=== PATIENT | female | born 1950 | race Caucasian/White ===

== ENCOUNTER 2019-08-18 08:03 | Day surgery (SDC) | payer MEDICARE ==
[2019-08-18] VITALS (12 sets, daily range): BP systolic 104–155; BP diastolic 51–80
[~2019-08-18] VITALS: Ht 165.1 cm; Wt 64.0 kg
[2019-08-18] MEDS ORDERED: LORazepam 0.5 MG tablet PO PRN (08:25)
[2019-08-18] MEDS ORDERED: diphenhydrAMINE 25mg capsule PO PRN (08:25)
[2019-08-18] MEDS ORDERED: normal saline 1,000 ML IV SCH (08:25)
[2019-08-18] MEDS ORDERED: LIDOcaine/PRILOcaine 5gm cream TP ONE (08:25)
[2019-08-18 09:05] LABS: ALBUMIN 3.8 G/DL (3.4-5.0); ANION GAP 9 (8-16); BASOPHILS % (AUTO) 0.4 % (0-1); CALCIUM 9.5 MG/DL (8.5-10.1); CHLORIDE 102 MMOL/L (99-107); CREATININE 1.02 MG/DL (0.40-0.90); EOSINOPHILS # (AUTO) 0.3 X10'3 (0-0.9); HEMATOCRIT 42.8 % (35.0-45.0); HEMOGLOBIN 14.2 g/dl (12.0-16.0); LYMPHOCYTES # (AUTO) 1.9 X10'3 (1.1-4.8); LYMPHOCYTES % (AUTO) 16.4 % (21-51); MEAN CORPUSCULAR HEMOGLOBIN 29.7 PG (27.0-31.0); MEAN CORPUSCULAR HGB CONC 33.2 g/dL (33.0-36.5); MEAN CORPUSCULAR VOLUME 89.5 FL (78-98); MEAN PLATELET VOLUME 8.8 FL (7.4-10.4); MONOCYTES # (AUTO) 0.6 X10'3 (0-0.9); MONOCYTES % (AUTO) 5.3 % (2-12); NEUTROPHILS # (AUTO) 8.5 X10'3 (1.8-7.7); NEUTROPHILS % (AUTO) 74.9 % (42-75); PLATELET COUNT 285 X10'3 (140-440); POTASSIUM 4.5 MMOL/L (3.5-5.1); RED BLOOD COUNT 4.78 X10'6 (4.20-5.60); RED CELL DISTRIBUTION WIDTH 14.7 % (11.5-14.5); SODIUM 136 MMOL/L (135-145); TOTAL CARBON DIOXIDE 24.7 MMOL/L (24-32); WHITE BLOOD COUNT 11.4 X10'3 (4.5-11.0); eGFR 54 ML/MIN
[2019-08-18 09:10] LABS: BLOOD UREA NITROGEN 18 MG/DL (7-18); BUN/CREATININE RATIO 17.6 (6.6-38.0); GLUCOSE 91 MG/DL (70-104)
[2019-08-18] MEDS ORDERED: midazolam 2 mg/2 ml injection ONE (10:22)
[2019-08-18] MEDS ORDERED: nitroGLYCERIN-Tridil 50MG/D5W 250 ML IV ONE (10:22)
[2019-08-18] MEDS ORDERED: verapamil 2.5 mg/ml inj IV ONE (10:22)
[2019-08-18] MEDS ORDERED: LIDOcaine 1% (10mg/ml)w/preservative injection 20ml MDV ONE (10:23)
[2019-08-18] MEDS ORDERED: fentaNYL/PF 50MCG/1 ML 2ML syringe ONE (10:23)
[2019-08-18] MEDS ORDERED: heparin 1,000unit/ml 10ml vial 10 ML ONE (10:23)
[2019-08-18] MEDS ORDERED: iohexol 350MG/ML 100ml bottle IV ONE (10:23)
[2019-08-18] MEDS ORDERED: ROSU20TA2 PO (10:34)
[2019-08-18] MEDS ORDERED: CARV3.122 PO (10:34)
[2019-08-18] MEDS ORDERED: HYDR12.55 PO (10:34)
[2019-08-18] MEDS ORDERED: MULT-1085 PO (10:34)
[2019-08-18] MEDS ORDERED: LISI-604 PO (10:34)
[2019-08-18] MEDS ORDERED: CALC625T31 PO (10:34)
[2019-08-18] MEDS ORDERED: ASPI-1265 PO (10:34)
[2019-08-18] MEDS ORDERED: OXAZEpam 15mg capsule PO PRN (11:50)
[2019-08-18] MEDS ORDERED: HYDROcodone/acetaminophen 10/325mg tab PO PRN (11:50)
[2019-08-18] MEDS ORDERED: ondansetron/PF 4mg/2ml inj IV PRN (11:50)
[2019-08-18] MEDS ORDERED: HYDROcodone/acetaminophen 5mg/325mg tablet PO PRN (11:50)
[2019-08-18] MEDS ORDERED: nitroGLYCERIN 0.4mg SUBLingual tab SL PRN (11:50)
[2019-08-18] MEDS ORDERED: proCHLORperazine 10 MG/2 ml inj IV PRN (11:50)
== END 2019-08-18 14:55 | disposition home or self-care (01) ==
LOC: MED 3N 08:03 → SSTAY O 08:03
PROVIDERS: ATTEND Internal Medicine Interventional Cardiology
DX: R94.39 Abnormal result of other cardiovascular function study (principal); I25.10 Atherosclerotic heart disease of native coronary artery without angina pectoris; I25.82 Chronic total occlusion of coronary artery; E78.5 Hyperlipidemia, unspecified; F17.210 Nicotine dependence, cigarettes, uncomplicated; I25.2 Old myocardial infarction; I11.0 Hypertensive heart disease with heart failure; I50.9 Heart failure, unspecified; Z79.899 Other long term (current) drug therapy; Z79.82 Long term (current) use of aspirin; Z88.8 Allergy status to other drugs, medicaments and biological substances; Z88.5 Allergy status to narcotic agent
CPT/HCPCS: 36415; 80048; 85025; 85610; 93005; 93458; 99152; 99153; C1769; C1894; J1644; J2001; J2250; J3010; J7030; Q0163; Q9967; A5120; J3490

== ENCOUNTER 2019-10-12 05:10 | Inpatient (IN) | payer MEDICARE ==
[2019-10-02 14:24] LABS: BASOPHILS # (AUTO) 0.1 X10'3 (0-0.2); BASOPHILS % (AUTO) 0.7 % (0-1); EOSINOPHILS # (AUTO) 0.3 X10'3 (0-0.9); EOSINOPHILS % (AUTO) 3.8 % (0-6); LYMPHOCYTES # (AUTO) 2.1 X10'3 (1.1-4.8); LYMPHOCYTES % (AUTO) 25.2 % (21-51); MEAN CORPUSCULAR HEMOGLOBIN 30.1 PG (27.0-31.0); MEAN CORPUSCULAR HGB CONC 33.1 g/dL (33.0-36.5); MEAN PLATELET VOLUME 8.7 FL (7.4-10.4); MONOCYTES # (AUTO) 0.4 X10'3 (0-0.9); MONOCYTES % (AUTO) 4.9 % (2-12); NEUTROPHILS # (AUTO) 5.4 X10'3 (1.8-7.7); NEUTROPHILS % (AUTO) 65.4 % (42-75); PRE OP HEMATOCRIT 42.2 % (35.0-45.0); PRE OP PLATELET COUNT 233 X10'3 (140-440); RED BLOOD COUNT 4.64 X10'6 (4.20-5.60); RED CELL DISTRIBUTION WIDTH 14.2 % (11.5-14.5)
[2019-10-02 14:24] LABS: CLARITY,URINE SLIGHTLY CLOUDY (Clear); COLOR,URINE YELLOW (Yellow); GLUCOSE, URINE NEGATIVE (Neg); KETONES,URINE NEGATIVE (Neg); LEUKOCYTE ESTERASE ,URINE NEGATIVE (Neg); NITRITES, URINE NEGATIVE (Neg); OCCULT BLOOD,URINE SMALL (Neg); PH,URINE 6.5 (4.8-8.0); PROTEIN,URINE NEGATIVE (Neg)
[2019-10-02 14:25] LABS: UA COLLECTION TYPE CLN CATCH MIDSTREAM
[2019-10-02 14:31] LABS: HEMOGLOBIN A1C 5.3 % (4.5-6.2)
[2019-10-02 14:32] LABS: BACTERIA,URINE 1+ /HPF (Neg); HYALINE CASTS 0-3 /LPF (NEGATIVE); MUCUS STRANDS MANY /LPF (Neg); SQUAMOUS EPITHELIAL CELL,UR MODERATE /LPF (FEW); WBC,URINE 0-4 /HPF (0-4)
[2019-10-02 14:39] LABS: ALBUMIN 3.5 G/DL (3.4-5.0); ALBUMIN/GLOBULIN RATIO 0.8 (1.1-1.5); ALKALINE PHOSPHATASE 87 IU/L (46-116); BLOOD UREA NITROGEN 15 MG/DL (7-18); BUN/CREATININE RATIO 14.4 (6.6-38.0); CALCIUM 8.9 MG/DL (8.5-10.1); CHLORIDE 103 MMOL/L (99-107); CREATININE 1.04 MG/DL (0.40-0.90); PRE OP ALT 19 U/L (30-65); PRE OP ANION GAP 5 (8-16); PRE OP AST 23 U/L (10-37); PRE OP BILIRUB, TOTAL 0.2 MG/DL (0.0-1.0); PRE OP SODIUM 140 MMOL/L (135-145); TOTAL CARBON DIOXIDE 31.9 MMOL/L (24-32); TOTAL PROTEIN 7.7 G/DL (6.4-8.2); eGFR 53 ML/MIN
[2019-10-02 14:40] LABS: PRE OP GLUCOSE 112 MG/DL (70-104)
[2019-10-02 16:02] LABS: PARTIAL THROMBOPLASTIN TIME 27 SECONDS (22-32)
[2019-10-06 07:40] LABS: ABG BASE EXCESS 2.6 mmol/L (-2.0-3.0); ABG HCO3 26.6 mmol/L (22.0-26.0); ABG OXYGEN SATURATION 96.9 % (95-98); ABG PCO2 (T) 39.3 mmHg (35.0-45.0); ABG PO2 (T) 86.1 mmHg (83-108); ALLEN'S TEST POSITIVE; FCOHb 2.5 % (0.5-1.5); FMetHb 0.3 % (0.3-1.12); FO2Hb 94.2 % (94-100); TOTAL HEMOGLOBIN 14.1 G/dl (12.0-16.0)
[2019-10-12] VITALS (17 sets, daily range): BP systolic 98–153; BP diastolic 50–84
[~2019-10-12] VITALS: Ht 165.1 cm; Wt 64.3 kg
[~2019-10-12 05:10] MED LIST: CARV3.122 PO; HYDR12.55 PO; LISI-604 PO; ROSU20TA2 PO; albuterol 2.5 MG/3 ML nebule NEB ONE; ringers solution, lacted 1,000 ML IV SCH
[2019-10-12] MEDS ORDERED: ceFAZolin 2gm in dextrose, iso 50 ML IV ONE (05:30)
[2019-10-12] MEDS ORDERED: DOCUMENT DATE & TIME OF BETA-BLOCKER PO ONE (05:30)
[2019-10-12] MEDS ORDERED: VANCOMYCIN INJ 1000 MG in NORMAL SALINE 250ml IV.SOLN IV ONE (05:30)
[2019-10-12] MEDS ORDERED: famotidine 20mg tablet PO ONE (05:30)
[2019-10-12] MEDS ORDERED: metoprolol tartrate 12.5mg (1/2 tablet) PO ONE (05:30)
[2019-10-12] MEDS ORDERED: albuterol 2.5 MG/3 ML nebule NEB ONE (05:30)
[2019-10-12] MEDS ORDERED: gabapentin 300mg capsule PO ONE (05:30)
[2019-10-12] MEDS ORDERED: LORazepam 2 mg/ml vial IV ONE (05:30)
[2019-10-12] MEDS ORDERED: LIDOcaine 1% (10mg/ml) 2ml vial ONE (05:39)
[2019-10-12] MEDS ORDERED: mupirocin 2% nasal ointment 1gm UD NS SCH (05:46)
[2019-10-12] MEDS ORDERED: magnesium sulf 1 GM/2 ML ONE (06:00)
[2019-10-12] MEDS ORDERED: potassium Cl 2 mEq/ml inj IV ONE (06:00)
[2019-10-12] MEDS ORDERED: papaverine 30 mg/ml 2ml inj. ONE (06:00)
[2019-10-12] MEDS ORDERED: calcium chloride 100 MG/1 ML inj IV ONE (06:00)
[2019-10-12] MEDS ORDERED: albumin (human) 25% 100 ML IV solution IV ONE (06:00)
[2019-10-12] MEDS ORDERED: sodium bicarbonate (8.4%) 1 mEq/ml syringe ONE (06:00)
[2019-10-12] MEDS ORDERED: heparin 1,000 units/ml 10ml inj ONE (06:00)
[2019-10-12] MEDS ORDERED: phenylephrine 10mg/ml inj. ONE ×2 (06:00→09:38)
[2019-10-12] MEDS ORDERED: heparin 10,000 units/1 ML INJ ONE (06:00)
[2019-10-12] MEDS ORDERED: methylPREDNISolone sod. succ. 500mg inj ONE (06:00)
[2019-10-12] MEDS ORDERED: aminocaproic acid 250 MG/1 ML inj. ONE ×2 (06:00→07:05)
[2019-10-12] MEDS ORDERED: ceFAZolin 1000mg inj ONE (06:08)
[2019-10-12] MEDS ORDERED: Insulin Reg/NS 100units/100mL 100 ML IV SCH ×2 (06:32→11:32)
[2019-10-12] MEDS ORDERED: dextrose 50%-water 50ml dispensing syringe IV PRN ×2 (06:35→11:35)
[2019-10-12] MEDS ORDERED: SUFENTANIL CITRATE 50 MCG/ML 2ml ampule IV ONE (06:40)
[2019-10-12] MEDS ORDERED: midazolam 2 mg/2 ml injection ONE (06:41)
[2019-10-12] MEDS ORDERED: papaverine 30 mg/ml 2ml inj. IA ONE (07:00)
[2019-10-12] MEDS ORDERED: heparin 10,000 units/1 ML INJ IR ONE (07:00)
[2019-10-12] MEDS ORDERED: nitroGLYCERIN in D5W 50mg/250ml (Tridil) infusion IV ONE (07:05)
[2019-10-12] MEDS ORDERED: protamine sulf. 10mg/ml inj. IV ONE (07:05)
[2019-10-12] MEDS ORDERED: isoflurane 100ml inhalation liquid IH ONE (07:05)
[2019-10-12] MEDS ORDERED: DOPamine/D5W 400mg/250ml bag IV ONE (07:05)
[2019-10-12 07:51] LABS: ABG BASE EXCESS -1.7 mmol/L (-2.0-3.0); ABG HCO3 20.4 mmol/L (22.0-26.0); ABG OXYGEN SATURATION 99.6 % (95-98); ABG PCO2 26.7 mmHg (35.0-45.0); ABG PH 7.501 (7.350-7.450); ABG PO2 395.7 mmHg (60.0-100.0); CL (ABG) 108 mmol/L (99-107); FCOHb 0.8 % (0.5-1.5); FMetHb 0.1 % (0.3-1.12); FO2Hb 98.7 % (94-100); GLUCOSE (ABG) 79 mg/dl (70-104); IONIZED CA (ABG) 1.09 mmol/L (1.03-1.32); NA (ABG) 134 mmol/L (135-145); TOTAL HEMOGLOBIN 11.4 G/dl (12.0-16.0)
[2019-10-12 08:25] LABS: ABG BASE EXCESS VENOUS -3.9 mmol/L; ABG PCO2 VENOUS 37.3 mmHg; ABG PO2 VENOUS 51.1 mmHg; CL (ABG) 107 mmol/L (99-107); FCOHb VENOUS 0.7 %; FHHb VENOUS 13.9 %; FMetHb VENOUS 0.3 %; FO2Hb VENOUS 85.1 %; GLUCOSE (ABG) 85 mg/dl (70-104); K (ABG) 4.4 mmol/L (3.3-5.1); NA (ABG) 134 mmol/L (135-145)
[2019-10-12 08:55] LABS: ABG BASE EXCESS -1.9 mmol/L (-2.0-3.0); ABG HCO3 20.6 mmol/L (22.0-26.0); ABG OXYGEN SATURATION 99.6 % (95-98); ABG PCO2 26.2 mmHg (35.0-45.0); ABG PH 7.514 (7.350-7.450); ABG PO2 418.6 mmHg (60.0-100.0); CL (ABG) 104 mmol/L (99-107); FCOHb 1.4 % (0.5-1.5); FMetHb 0.3 % (0.3-1.12); FO2Hb 97.9 % (94-100); GLUCOSE (ABG) 86 mg/dl (70-104); IONIZED CA (ABG) 0.91 mmol/L (1.03-1.32); NA (ABG) 131 mmol/L (135-145); TOTAL HEMOGLOBIN 7.3 G/dl (12.0-16.0)
[2019-10-12] MEDS ORDERED: ipratropium/albuterol 3ml nebule IH PRN (08:55)
[2019-10-12 09:16] LABS: ABG BASE EXCESS 0.1 mmol/L (-2.0-3.0); ABG HCO3 23.2 mmol/L (22.0-26.0); ABG OXYGEN SATURATION 99.2 % (95-98); ABG PCO2 31.1 mmHg (35.0-45.0); ABG PH 7.491 (7.350-7.450); ABG PO2 399.4 mmHg (60.0-100.0); CL (ABG) 105 mmol/L (99-107); FCOHb 0.6 % (0.5-1.5); FMetHb 0.7 % (0.3-1.12); FO2Hb 97.9 % (94-100); GLUCOSE (ABG) 98 mg/dl (70-104); IONIZED CA (ABG) 0.96 mmol/L (1.03-1.32); NA (ABG) 132 mmol/L (135-145)
[2019-10-12 09:25] LABS: ABG BASE EXCESS 0.2 mmol/L (-2.0-3.0); ABG HCO3 23.6 mmol/L (22.0-26.0); ABG OXYGEN SATURATION 99.2 % (95-98); ABG PCO2 32.8 mmHg (35.0-45.0); ABG PH 7.474 (7.350-7.450); ABG PO2 392.9 mmHg (60.0-100.0); CL (ABG) 105 mmol/L (99-107); FCOHb 0.6 % (0.5-1.5); FMetHb 0.7 % (0.3-1.12); FO2Hb 97.9 % (94-100); GLUCOSE (ABG) 104 mg/dl (70-104); IONIZED CA (ABG) 0.97 mmol/L (1.03-1.32); NA (ABG) 132 mmol/L (135-145); TOTAL HEMOGLOBIN 8.2 G/dl (12.0-16.0)
[2019-10-12] MEDS ORDERED: LIDOcaine 2% (20mg/ml) 5ml vial ONE (09:38)
[2019-10-12] MEDS ORDERED: etomidate 2mg/ml inj. ONE (09:38)
[2019-10-12] MEDS ORDERED: rocuronium 10mg/ml inj IV ONE (09:38)
[2019-10-12] MEDS ORDERED: propofol inj 20 ML IV ONE (09:38)
[2019-10-12 09:45] LABS: ABG BASE EXCESS -0.4 mmol/L (-2.0-3.0); ABG HCO3 23.3 mmol/L (22.0-26.0); ABG OXYGEN SATURATION 99.1 % (95-98); ABG PH 7.453 (7.350-7.450); ABG PO2 366.2 mmHg (60.0-100.0); CL (ABG) 106 mmol/L (99-107); FCOHb 0.4 % (0.5-1.5); FMetHb 0.5 % (0.3-1.12); FO2Hb 98.2 % (94-100); GLUCOSE (ABG) 109 mg/dl (70-104); NA (ABG) 132 mmol/L (135-145); TOTAL HEMOGLOBIN 8.4 G/dl (12.0-16.0)
[2019-10-12 09:45] LABS: ABG BASE EXCESS VENOUS 1.8 mmol/L; ABG HCO3 VENOUS 26.1 mmol/L; ABG PCO2 VENOUS 39.8 mmHg; ABG PO2 VENOUS 44.2 mmHg; CL (ABG) 106 mmol/L (99-107); FCOHb VENOUS 0.8 %; FHHb VENOUS 16.8 %; FMetHb VENOUS 0.7 %; FO2Hb VENOUS 81.7 %; GLUCOSE (ABG) 118 mg/dl (70-104); IONIZED CA (ABG) 0.98 mmol/L (1.03-1.32); NA (ABG) 132 mmol/L (135-145); TOTAL HEMOGLOBIN 8.6 G/dl (12.0-16.0)
[2019-10-12 10:11] LABS: ABG BASE EXCESS 0.5 mmol/L (-2.0-3.0); ABG OXYGEN SATURATION 99.1 % (95-98); ABG PCO2 33.7 mmHg (35.0-45.0); ABG PH 7.471 (7.350-7.450); ABG PO2 348.4 mmHg (60.0-100.0); CL (ABG) 105 mmol/L (99-107); FCOHb 0.5 % (0.5-1.5); FMetHb 0.8 % (0.3-1.12); FO2Hb 97.8 % (94-100); GLUCOSE (ABG) 125 mg/dl (70-104); IONIZED CA (ABG) 0.96 mmol/L (1.03-1.32); NA (ABG) 130 mmol/L (135-145); TOTAL HEMOGLOBIN 7.8 G/dl (12.0-16.0)
[2019-10-12 10:26] LABS: ABG BASE EXCESS 2.1 mmol/L (-2.0-3.0); ABG HCO3 25.8 mmol/L (22.0-26.0); ABG OXYGEN SATURATION 99.1 % (95-98); ABG PCO2 36.1 mmHg (35.0-45.0); ABG PH 7.472 (7.350-7.450); ABG PO2 366.2 mmHg (60.0-100.0); CL (ABG) 103 mmol/L (99-107); FCOHb 0.6 % (0.5-1.5); FMetHb 0.8 % (0.3-1.12); FO2Hb 97.7 % (94-100); GLUCOSE (ABG) 346 mg/dl (70-104); IONIZED CA (ABG) 0.95 mmol/L (1.03-1.32); NA (ABG) 129 mmol/L (135-145); TOTAL HEMOGLOBIN 7.2 G/dl (12.0-16.0)
[2019-10-12 10:56] LABS: ABG BASE EXCESS VENOUS -0.9 mmol/L; ABG HCO3 VENOUS 23.7 mmol/L; ABG PCO2 VENOUS 39.1 mmHg; ABG PO2 VENOUS 39.6 mmHg; CL (ABG) 105 mmol/L (99-107); FCOHb VENOUS 0.8 %; FHHb VENOUS 24.4 %; FO2Hb VENOUS 73.8 %; GLUCOSE (ABG) 224 mg/dl (70-104); IONIZED CA (ABG) 1.19 mmol/L (1.03-1.32); K (ABG) 4.8 mmol/L (3.3-5.1); NA (ABG) 132 mmol/L (135-145)
[2019-10-12 11:16] LABS: ACT @ 1.70 U 330 SEC (193-297); ACT @ 2.84 U 481 SEC (260-420); BASELINE ACT 151 SEC (101-148); PATIENT WEIGHT 67.0k KG
[2019-10-12 11:16] LABS: ACTIVATED CLOTTING TIME 122 SEC (101-148)
[2019-10-12] MEDS ORDERED: niCARDipine-NS 40mg/200ml IVPB 200 ML IV PRN (11:32)
[2019-10-12] MEDS ORDERED: DOPamine 400mg/D5W 250ml 250 ML IV PRN (11:32)
[2019-10-12] MEDS ORDERED: nitroGLYCERIN-Tridil 50MG/D5W 250 ML IV PRN (11:32)
[2019-10-12] MEDS ORDERED: metoclopramide 5 mg/ml inj IV PRN (11:35)
[2019-10-12] MEDS ORDERED: magnesium hydroxide 30ml (MOM) UD suspension PO PRN (11:35)
[2019-10-12] MEDS ORDERED: bisacodyl 10mg suppository rectal RC PRN (11:35)
[2019-10-12] MEDS ORDERED: sodium phosphate inj. 15 MMOL in dextrose 5%-water 250 ML IV PRN (11:35)
[2019-10-12] MEDS ORDERED: potassium Cl 20 mEq SR tablet PO PRN (11:35)
[2019-10-12] MEDS ORDERED: sodium phosphate inj. 30 MMOL in dextrose 5%-water 250 ML IV PRN (11:35)
[2019-10-12] MEDS ORDERED: ondansetron/PF 4mg/2ml inj IV PRN (11:35)
[2019-10-12] MEDS ORDERED: insulin glargine (Lantus) pen - multi-dose SQ PRN (11:35)
[2019-10-12] MEDS ORDERED: Neutra Phos packet PO PRN (11:35)
[2019-10-12] MEDS ORDERED: mineral oil 133ml enema RC PRN (11:35)
[2019-10-12] MEDS ORDERED: acetaminophen 325mg tablet PO PRN ×2 (11:35)
[2019-10-12] MEDS ORDERED: magnesium citrate 296ml oral solution PO PRN (11:35)
[2019-10-12] MEDS ORDERED: normal saline 250ml IV soln 250 ML IV PRN (11:35)
[2019-10-12] MEDS ORDERED: pantoprazole 40 MG vial IV ONE (11:35)
[2019-10-12] MEDS ORDERED: HYDROcodone/acetaminophen 10/325mg tab PO PRN (11:35)
--- NOTE | 2019-10-12 11:53 | NUR ---
CABG Consult: Pt s/p CABGx4; would benefit from written/verbal CABG/HH diet eds once stable post-op. Addendum: 10/12/19 at [address] Amended: Links added.
[2019-10-12] MEDS: sodium chloride 0.45% 1,000 ML IV SCH (11:55)
[2019-10-12] MEDS ORDERED: niCARDipine-NS 40mg/200ml IVPB 200 ML IV ONE (11:56)
[2019-10-12 12:01] LABS: ABG BASE EXCESS -2.9 mmol/L (-2.0-3.0); ABG OXYGEN SATURATION 98.9 % (95-98); ABG PCO2 (T) 32.8 mmHg (35.0-45.0); ABG PO2 (T) 310.6 mmHg (83-108); FCOHb 0.2 % (0.5-1.5); FLOW 55 L/min; FMetHb 0.3 % (0.3-1.12); FO2Hb 98.4 % (94-100); PATIENT TEMPERATURE 36.7; PEEP 5 cm H2O; RESPIRATORY RATE 12 b/min; TIDAL VOLUME 550 mL; TOTAL HEMOGLOBIN 10.4 G/dl (12.0-16.0)
[2019-10-12 12:02] LABS: BASOPHILS % (AUTO) 0.1 % (0-1); EOSINOPHILS # (AUTO) 0.1 X10'3 (0-0.9); EOSINOPHILS % (AUTO) 0.6 % (0-6); HEMATOCRIT 28.4 % (35.0-45.0); HEMOGLOBIN 9.5 g/dl (12.0-16.0); LYMPHOCYTES # (AUTO) 0.9 X10'3 (1.1-4.8); LYMPHOCYTES % (AUTO) 6.2 % (21-51); MEAN CORPUSCULAR HEMOGLOBIN 30.2 PG (27.0-31.0); MEAN CORPUSCULAR HGB CONC 33.5 g/dL (33.0-36.5); MEAN CORPUSCULAR VOLUME 90.2 FL (78-98); MEAN PLATELET VOLUME 8.4 FL (7.4-10.4); MONOCYTES # (AUTO) 0.6 X10'3 (0-0.9); MONOCYTES % (AUTO) 3.8 % (2-12); NEUTROPHILS # (AUTO) 13.2 X10'3 (1.8-7.7); NEUTROPHILS % (AUTO) 89.3 % (42-75); PLATELET COUNT 125 X10'3 (140-440); RED BLOOD COUNT 3.15 X10'6 (4.20-5.60); RED CELL DISTRIBUTION WIDTH 13.9 % (11.5-14.5); WHITE BLOOD COUNT 14.8 X10'3 (4.5-11.0)
[2019-10-12] MEDS ORDERED: acetaminophen 1,000mg/100ml IV 100 ML IV ONE (12:12)
[2019-10-12 12:15] LABS: ALANINE AMINOTRANSFERASE 14 U/L (12-78); ALBUMIN 2.5 G/DL (3.4-5.0); ALKALINE PHOSPHATASE 53 IU/L (46-116); ANION GAP 9 (8-16); ASPARTATE AMINO TRANSFERASE 47 U/L (10-37); BILIRUBIN,TOTAL 0.4 MG/DL (0.1-1.0); BLOOD UREA NITROGEN 11 MG/DL (7-18); BUN/CREATININE RATIO 8.7 (6.6-38.0); CALCIUM 8.5 MG/DL (8.5-10.1); CHLORIDE 111 MMOL/L (99-107); CREATININE 1.26 MG/DL (0.40-0.90); GLUCOSE 101 MG/DL (70-104); PARTIAL THROMBOPLASTIN TIME 25 SECONDS (22-32); POTASSIUM 3.7 MMOL/L (3.5-5.1); SODIUM 145 MMOL/L (135-145); TOTAL CARBON DIOXIDE 24.6 MMOL/L (24-32); eGFR 42 ML/MIN
[2019-10-12 12:22] LABS: MAGNESIUM 3.2 MG/DL (1.5-2.4)
[2019-10-12 12:24] LABS: PHOSPHORUS 1.1 MG/DL (2.3-4.5)
[2019-10-12] MEDS: potassium Cl 20mEq/100mL bag 100 ML IV PRN ×5 (12:40→23:02)
[2019-10-12] MEDS: albumin (Human) 5% 250ml 250 ML IV PRN ×3 (13:12→18:46)
[2019-10-12] MEDS: gabapentin 300mg capsule PO SCH ×2 (13:52→20:30)
[2019-10-12 15:25] LABS: K (ABG) 7.3 mmol/L (3.3-5.1)
[2019-10-12 15:26] LABS: K (ABG) 6.3 mmol/L (3.3-5.1)
[2019-10-12 15:27] LABS: K (ABG) 6.2 mmol/L (3.3-5.1)
[2019-10-12 15:27] LABS: K (ABG) 6.7 mmol/L (3.3-5.1)
[2019-10-12 15:28] LABS: K (ABG) 6.6 mmol/L (3.3-5.1)
[2019-10-12 15:29] LABS: K (ABG) 6.5 mmol/L (3.3-5.1)
[2019-10-12 15:29] LABS: K (ABG) 6.2 mmol/L (3.3-5.1)
[2019-10-12] MEDS: ceFAZolin 1GM/D5W- ADD-VANTAGE 50 ML IV SCH (16:28)
[2019-10-12] MEDS: HYDROmorphone inj. 0.5 MG/0.5 ML DISP.SYRIN IV PRN ×2 (17:41→22:56)
[2019-10-12 17:49] LABS: BASOPHILS % (AUTO) 0 % (0-1); EOSINOPHILS % (AUTO) 0 % (0-6); HEMATOCRIT 25.6 % (35.0-45.0); HEMOGLOBIN 8.4 g/dl (12.0-16.0); LYMPHOCYTES # (AUTO) 1.3 X10'3 (1.1-4.8); LYMPHOCYTES % (AUTO) 7.1 % (21-51); MEAN CORPUSCULAR HEMOGLOBIN 29.6 PG (27.0-31.0); MEAN CORPUSCULAR HGB CONC 32.8 g/dL (33.0-36.5); MEAN CORPUSCULAR VOLUME 90.4 FL (78-98); MEAN PLATELET VOLUME 8.7 FL (7.4-10.4); MONOCYTES # (AUTO) 0.7 X10'3 (0-0.9); MONOCYTES % (AUTO) 3.9 % (2-12); NEUTROPHILS # (AUTO) 16.1 X10'3 (1.8-7.7); PLATELET COUNT 123 X10'3 (140-440); RED BLOOD COUNT 2.83 X10'6 (4.20-5.60); RED CELL DISTRIBUTION WIDTH 14.4 % (11.5-14.5); WHITE BLOOD COUNT 18.1 X10'3 (4.5-11.0)
--- NOTE | 2019-10-12 18:15 | NUR ---
Received report from Jigar ANDRES. Patient on ventilator CPAP/PS at 35%, to java technical architect, arterial line and PA line pressure monitored. Chest tubes to suction at 20 cm. Partida cath to gravity drainage. Dressings are dry and intact. See assessment record. All vasoactive drugs are infusing via central line. Patient moving all extremities to command. Patient falling asleep easily, not staying awake for weaning parameters at this time. Will continue to monitor.
[2019-10-12 18:41] LABS: ALBUMIN 3.2 G/DL (3.4-5.0); ANION GAP 9 (8-16); BLOOD UREA NITROGEN 14 MG/DL (7-18); BUN/CREATININE RATIO 10.6 (6.6-38.0); CALCIUM 7.9 MG/DL (8.5-10.1); CHLORIDE 113 MMOL/L (99-107); CREATININE 1.32 MG/DL (0.40-0.90); GLUCOSE 127 MG/DL (70-104); MAGNESIUM 2.5 MG/DL (1.5-2.4); PHOSPHORUS 4.1 MG/DL (2.3-4.5); POTASSIUM 4.3 MMOL/L (3.5-5.1); SODIUM 145 MMOL/L (135-145); TOTAL CARBON DIOXIDE 23.2 MMOL/L (24-32); eGFR 40 ML/MIN
[2019-10-12] MEDS: vancomycin/NS 1 GM ADD-VANTAGE 250 ML IV SCH (20:27)
[2019-10-12] MEDS: mupirocin 2% nasal ointment 1gm UD NS SCH (20:30)
[2019-10-12] MEDS: sennosides/docusate sodium tablet PO SCH (20:30)
[2019-10-12 21:36] LABS: ABG BASE EXCESS -7.2 mmol/L (-2.0-3.0); ABG HCO3 18.5 mmol/L (22.0-26.0); ABG OXYGEN SATURATION 96.7 % (95-98); ABG PCO2 (T) 37.6 mmHg (35.0-45.0); ABG PO2 (T) 101.3 mmHg (83-108); FCOHb 0.3 % (0.5-1.5); FMetHb 0.1 % (0.3-1.12); FO2Hb 96.3 % (94-100); PATIENT TEMPERATURE 36.7; PEEP 5 cm H2O; TOTAL HEMOGLOBIN 9.1 G/dl (12.0-16.0)
[2019-10-13] VITALS (24 sets, daily range): BP systolic 89–136; BP diastolic 45–94
[2019-10-13] MEDS: ceFAZolin 1GM/D5W- ADD-VANTAGE 50 ML IV SCH ×3 (00:08→16:03)
[2019-10-13 03:22] LABS: BASOPHILS % (AUTO) 0 % (0-1); EOSINOPHILS % (AUTO) 0 % (0-6); HEMATOCRIT 25.1 % (35.0-45.0); HEMOGLOBIN 8.2 g/dl (12.0-16.0); LYMPHOCYTES # (AUTO) 1.2 X10'3 (1.1-4.8); LYMPHOCYTES % (AUTO) 6.7 % (21-51); MEAN CORPUSCULAR HEMOGLOBIN 29.8 PG (27.0-31.0); MEAN CORPUSCULAR HGB CONC 32.6 g/dL (33.0-36.5); MEAN CORPUSCULAR VOLUME 91.3 FL (78-98); MEAN PLATELET VOLUME 9.3 FL (7.4-10.4); MONOCYTES # (AUTO) 1.1 X10'3 (0-0.9); MONOCYTES % (AUTO) 6.5 % (2-12); NEUTROPHILS # (AUTO) 14.9 X10'3 (1.8-7.7); NEUTROPHILS % (AUTO) 86.8 % (42-75); PLATELET COUNT 107 X10'3 (140-440); RED BLOOD COUNT 2.75 X10'6 (4.20-5.60); RED CELL DISTRIBUTION WIDTH 14.6 % (11.5-14.5); WHITE BLOOD COUNT 17.2 X10'3 (4.5-11.0)
[2019-10-13 03:30] LABS: PARTIAL THROMBOPLASTIN TIME 24 SECONDS (22-32)
--- NOTE | 2019-10-13 03:31 | NUR ---
2135: Patient extubated, voice is hoarse and soft, patient is alert and orientated, VSS, post extubation incentive spirometer and flutter valve used and educated patient on both as well as sternal precautions. 2238: Patient had small amount of emesis, consistency mucoid like. Zofran administered with effect. 0000: patient voice soft, swallowing water well.
[2019-10-13 03:34] LABS: ALANINE AMINOTRANSFERASE 13 U/L (12-78); ALBUMIN 3.6 G/DL (3.4-5.0); ALBUMIN/GLOBULIN RATIO 1.6 (1.1-1.5); ALKALINE PHOSPHATASE 46 IU/L (46-116); ANION GAP 10 (8-16); ASPARTATE AMINO TRANSFERASE 55 U/L (10-37); BILIRUBIN,TOTAL 0.3 MG/DL (0.1-1.0); BLOOD UREA NITROGEN 14 MG/DL (7-18); BUN/CREATININE RATIO 13.2 (6.6-38.0); CALCIUM 8.3 MG/DL (8.5-10.1); CHLORIDE 115 MMOL/L (99-107); CREATININE 1.06 MG/DL (0.40-0.90); GLUCOSE 125 MG/DL (70-104); MAGNESIUM 2.5 MG/DL (1.5-2.4); PHOSPHORUS 4.2 MG/DL (2.3-4.5); POTASSIUM 5.5 MMOL/L (3.5-5.1); SODIUM 147 MMOL/L (135-145); TOTAL CARBON DIOXIDE 22.4 MMOL/L (24-32); TOTAL PROTEIN 5.8 G/DL (6.4-8.2); eGFR 52 ML/MIN
[2019-10-13] MEDS: HYDROmorphone inj. 0.5 MG/0.5 ML DISP.SYRIN IV PRN (04:08)
--- NOTE | 2019-10-13 06:14 | NUR ---
Problems reprioritized. Patient report given, questions answered & plan of care reviewed with Jigar ANDRES.
[2019-10-13] MEDS: atorvastatin 10mg tablet PO SCH (08:15)
[2019-10-13] MEDS: vancomycin/NS 1 GM ADD-VANTAGE 250 ML IV SCH ×2 (08:15→20:35)
[2019-10-13] MEDS: aspirin 325mg tablet, delayed-release (Ecotrin) PO SCH (08:15)
[2019-10-13] MEDS: gabapentin 300mg capsule PO SCH ×3 (08:15→20:36)
[2019-10-13] MEDS: sennosides/docusate sodium tablet PO SCH ×2 (08:15→20:37)
[2019-10-13] MEDS: mupirocin 2% nasal ointment 1gm UD NS SCH ×2 (08:18→20:35)
[2019-10-13] MEDS: metoprolol tartrate 12.5mg (1/2 tablet) PO SCH ×2 (09:11→20:36)
[2019-10-13] MEDS: HYDROcodone/acetaminophen 10/325mg tab PO PRN ×2 (11:23→16:03)
[2019-10-13] MEDS ORDERED: dextrose 50%-water 50ml dispensing syringe IV PRN (12:25)
[2019-10-13] MEDS ORDERED: glucagon, human recombinant 1mg kit SUBCUT PRN (12:25)
[2019-10-13] MEDS ORDERED: MESSAGE TO PHARMACY PO ONE (12:25)
[2019-10-13] MEDS ORDERED: insulin Lispro (HumaLOG) vial - multi-dose SQ SCH (12:25)
[2019-10-13] MEDS ORDERED: dextrose ORAL solution 15 GM/59 ML bottle PO PRN ×2 (12:25)
--- NOTE | 2019-10-13 12:50 | NUR ---
CABG Consult: Pt s/p CABGx4; given written/verbal CABG/HH diet education. Addendum: 10/13/19 at [address] Amended: Links added.
--- NOTE | 2019-10-13 15:15 | NUR ---
PA line d/c'd per MD. Patient tolerated well. New dressing applied.
--- NOTE | 2019-10-13 16:47 | NUR ---
Spoke with Leland Yates, PAC on the telephone. New order for Tessalon Pearls 100mg PO TID for cough/congestion. Leland notified of poor output, Per Leland patient needs to be encouraged to drink more fluid.
--- NOTE | 2019-10-13 18:30 | NUR ---
RN Note -Pt confused, impulsive. Climbed out of bed before shift change and almost fell. Pt unable to follow sternal precautions, use IS or flutter. Bed alarm on.
[2019-10-13] MEDS: insulin glargine (Lantus) pen - multi-dose SQ SCH (20:36)
[2019-10-13] MEDS: benzonatate 100mg capsule PO SCH (20:36)
--- NOTE | 2019-10-13 22:25 | NUR ---
RN Note -sternal vest put on pt to protect chest. Sitter with pt when RN not at bedside.
[2019-10-14] VITALS (32 sets, daily range): BP systolic 61–143; BP diastolic 39–85
[2019-10-14] MEDS: ceFAZolin 1GM/D5W- ADD-VANTAGE 50 ML IV SCH (00:40)
[2019-10-14] MEDS: HYDROmorphone 1 mg/ml syringe IV PRN ×2 (02:07→10:40)
--- NOTE | 2019-10-14 02:45 | NUR ---
RN Note -Dr. Salazar called for critical H&H and high chest tube output. One unit PRBC ordered.
[2019-10-14 03:01] LABS: BASOPHILS % (AUTO) 0 % (0-1); EOSINOPHILS % (AUTO) 0 % (0-6); LYMPHOCYTES # (AUTO) 1.9 X10'3 (1.1-4.8); LYMPHOCYTES % (AUTO) 13.2 % (21-51); MEAN CORPUSCULAR HEMOGLOBIN 29.8 PG (27.0-31.0); MEAN CORPUSCULAR HGB CONC 32.2 g/dL (33.0-36.5); MEAN CORPUSCULAR VOLUME 92.7 FL (78-98); MEAN PLATELET VOLUME 9.3 FL (7.4-10.4); MONOCYTES # (AUTO) 1.2 X10'3 (0-0.9); MONOCYTES % (AUTO) 8.3 % (2-12); NEUTROPHILS # (AUTO) 11.5 X10'3 (1.8-7.7); NEUTROPHILS % (AUTO) 78.5 % (42-75); PLATELET COUNT 99 X10'3 (140-440); RED BLOOD COUNT 1.73 X10'6 (4.20-5.60); RED CELL DISTRIBUTION WIDTH 14.9 % (11.5-14.5); WHITE BLOOD COUNT 14.6 X10'3 (4.5-11.0)
[2019-10-14 03:04] LABS: HEMOGLOBIN 5.2 g/dl (12.0-16.0)
[2019-10-14 03:12] LABS: ANION GAP 11 (8-16); BLOOD UREA NITROGEN 27 MG/DL (7-18); BUN/CREATININE RATIO 21.8 (6.6-38.0); CALCIUM 6.3 MG/DL (8.5-10.1); CHLORIDE 110 MMOL/L (99-107); CREATININE 1.24 MG/DL (0.40-0.90); GLUCOSE 211 MG/DL (70-104); MAGNESIUM 2.1 MG/DL (1.5-2.4); PARTIAL THROMBOPLASTIN TIME 29 SECONDS (22-32); PHOSPHORUS 3.7 MG/DL (2.3-4.5); POTASSIUM 4.8 MMOL/L (3.5-5.1); SODIUM 138 MMOL/L (135-145); TOTAL CARBON DIOXIDE 17.5 MMOL/L (24-32); eGFR 43 ML/MIN
--- NOTE | 2019-10-14 05:40 | NUR ---
RN Note -Dr. Salazar called prior to hemogram result due to high chest tube output and pt blood pressure dropping. One unit PRBC ordered, Dr. Salazar coming to see pt
[2019-10-14 05:41] LABS: HEMATOCRIT 22.5 % (35.0-45.0); HEMOGLOBIN 7.4 g/dl (12.0-16.0); MEAN CORPUSCULAR HEMOGLOBIN 29.4 PG (27.0-31.0); MEAN CORPUSCULAR HGB CONC 32.7 g/dL (33.0-36.5); MEAN PLATELET VOLUME 9.8 FL (7.4-10.4); PLATELET COUNT 102 X10'3 (140-440); RED CELL DISTRIBUTION WIDTH 14.1 % (11.5-14.5); WHITE BLOOD COUNT 19.1 X10'3 (4.5-11.0)
--- NOTE | 2019-10-14 06:15 | NUR ---
RN Note -Family notified by charge nurse that pt is going to surgery emergently
[2019-10-14] MEDS ORDERED: isoflurane 100ml inhalation liquid IH ONE (06:35)
[2019-10-14] MEDS ORDERED: ePHEDrine 50MG/ML INJ. ONE (06:35)
[2019-10-14] MEDS ORDERED: MIDAZolam 5mg/5ml vial ONE (06:48)
[2019-10-14] MEDS ORDERED: fentaNYL /PF 50mcg/ml 5ml ampule ONE (06:48)
[2019-10-14] MEDS: pantoprazole 40mg Tablet.DR PO SCH (07:30)
[2019-10-14] MEDS: sennosides/docusate sodium tablet PO SCH ×2 (07:37→19:34)
[2019-10-14] MEDS: benzonatate 100mg capsule PO SCH ×3 (07:37→19:35)
[2019-10-14] MEDS ORDERED: sodium bicarbonate (8.4%) inj. 1 MEQ/ML ML ONE ×2 (07:39)
[2019-10-14 07:41] LABS: ABG BASE EXCESS -13.4 mmol/L (-2.0-3.0); ABG HCO3 13.5 mmol/L (22.0-26.0); ABG OXYGEN SATURATION 98.8 % (95-98); ABG PCO2 35.6 mmHg (35.0-45.0); ABG PO2 194.1 mmHg (60.0-100.0); CL (ABG) 110 mmol/L (99-107); FCOHb 1.1 % (0.5-1.5); FMetHb 0.6 % (0.3-1.12); FO2Hb 97.1 % (94-100); GLUCOSE (ABG) 216 mg/dl (70-104); IONIZED CA (ABG) 0.92 mmol/L (1.03-1.32); K (ABG) 4.5 mmol/L (3.3-5.1); NA (ABG) 133 mmol/L (135-145)
--- NOTE | 2019-10-14 07:52 | NUR ---
0615 - Received report at bedside from Stephane ANDRES, patient doing poorly, poor color, diaphoretic, BP in 60s/40s, confused with a full atrium and more blood in the tubes. Stephane ANDRES stayed on and assisted getting patient out to emergent surgery with Dr. Salazar at 0650.
[2019-10-14] MEDS ORDERED: ceFAZolin 1000mg inj ONE ×3 (07:56→07:57)
[2019-10-14] MEDS ORDERED: etomidate 2mg/ml inj. ONE (07:57)
[2019-10-14] MEDS ORDERED: albumin (Human) 5% 250ml 250 ML IV ONE ×5 (07:57→20:45)
[2019-10-14] MEDS ORDERED: rocuronium 10mg/ml inj IV ONE ×2 (07:57→08:22)
[2019-10-14 08:02] LABS: ABG PH 7.196 (7.350-7.450); TOTAL HEMOGLOBIN 5.8 G/dl (12.0-16.0)
[2019-10-14 08:11] LABS: ABG BASE EXCESS -8.2 mmol/L (-2.0-3.0); ABG PCO2 33.7 mmHg (35.0-45.0); ABG PH 7.321 (7.350-7.450); ABG PO2 50.9 mmHg (60.0-100.0); CL (ABG) 108 mmol/L (99-107); FCOHb 0.7 % (0.5-1.5); FMetHb 0.3 % (0.3-1.12); FO2Hb 85.1 % (94-100); GLUCOSE (ABG) 176 mg/dl (70-104); K (ABG) 3.8 mmol/L (3.3-5.1); NA (ABG) 136 mmol/L (135-145); TOTAL HEMOGLOBIN 9.1 G/dl (12.0-16.0)
[2019-10-14 08:55] LABS: ABG BASE EXCESS -8.4 mmol/L (-2.0-3.0); ABG HCO3 17.4 mmol/L (22.0-26.0); ABG OXYGEN SATURATION 91.1 % (95-98); ABG PCO2 (T) 34.6 mmHg (35.0-45.0); ABG PO2 (T) 56.4 mmHg (83-108); FCOHb 0.3 % (0.5-1.5); FMetHb 0.3 % (0.3-1.12); FO2Hb 90.6 % (94-100); PATIENT TEMPERATURE 35.5; RESPIRATORY RATE 12 b/min; TIDAL VOLUME 550 mL; TOTAL HEMOGLOBIN 12.1 G/dl (12.0-16.0)
[2019-10-14] MEDS ORDERED: sodium bicarbonate (8.4%) inj. 1 MEQ/ML ML IV ONE (09:00)
[2019-10-14] MEDS: atorvastatin 10mg tablet PO SCH (09:32)
[2019-10-14] MEDS: gabapentin 300mg capsule PO SCH (09:32)
[2019-10-14] MEDS: metoprolol tartrate 12.5mg (1/2 tablet) PO SCH ×2 (09:32→19:34)
[2019-10-14] MEDS: aspirin 325mg tablet, delayed-release (Ecotrin) PO SCH (09:32)
[2019-10-14] MEDS: mupirocin 2% nasal ointment 1gm UD NS SCH (09:54)
[2019-10-14 09:55] LABS: BASOPHILS % (AUTO) 0.1 % (0-1); EOSINOPHILS % (AUTO) 0 % (0-6); HEMATOCRIT 33.9 % (35.0-45.0); HEMOGLOBIN 11.1 g/dl (12.0-16.0); LYMPHOCYTES # (AUTO) 0.9 X10'3 (1.1-4.8); LYMPHOCYTES % (AUTO) 7.1 % (21-51); MEAN CORPUSCULAR HEMOGLOBIN 29.5 PG (27.0-31.0); MEAN CORPUSCULAR HGB CONC 32.7 g/dL (33.0-36.5); MEAN CORPUSCULAR VOLUME 90.3 FL (78-98); MEAN PLATELET VOLUME 9.5 FL (7.4-10.4); MONOCYTES # (AUTO) 1.5 X10'3 (0-0.9); MONOCYTES % (AUTO) 11.4 % (2-12); NEUTROPHILS # (AUTO) 10.8 X10'3 (1.8-7.7); NEUTROPHILS % (AUTO) 81.4 % (42-75); RED BLOOD COUNT 3.75 X10'6 (4.20-5.60); RED CELL DISTRIBUTION WIDTH 14.3 % (11.5-14.5); WHITE BLOOD COUNT 13.3 X10'3 (4.5-11.0)
[2019-10-14 10:02] LABS: PARTIAL THROMBOPLASTIN TIME 47 SECONDS (22-32)
[2019-10-14 10:04] LABS: ALANINE AMINOTRANSFERASE 10 U/L (12-78); ALBUMIN 2.5 G/DL (3.4-5.0); ALBUMIN/GLOBULIN RATIO 2.8 (1.1-1.5); ALKALINE PHOSPHATASE 15 IU/L (46-116); ANION GAP 11 (8-16); ASPARTATE AMINO TRANSFERASE 19 U/L (10-37); BILIRUBIN,TOTAL 0.2 MG/DL (0.1-1.0); BLOOD UREA NITROGEN 27 MG/DL (7-18); BUN/CREATININE RATIO 23.1 (6.6-38.0); CHLORIDE 113 MMOL/L (99-107); CREATININE 1.17 MG/DL (0.40-0.90); GLUCOSE 164 MG/DL (70-104); MAGNESIUM 1.9 MG/DL (1.5-2.4); PHOSPHORUS 4.2 MG/DL (2.3-4.5); POTASSIUM 4.4 MMOL/L (3.5-5.1); SODIUM 144 MMOL/L (135-145); TOTAL CARBON DIOXIDE 20.5 MMOL/L (24-32); TOTAL PROTEIN 3.4 G/DL (6.4-8.2); eGFR 46 ML/MIN
[2019-10-14 10:09] LABS: CALCIUM 5.5 MG/DL (8.5-10.1)
[2019-10-14 10:22] LABS: PLATELET COUNT 25 X10'3 (140-440)
[2019-10-14] MEDS ORDERED: calcium chloride inj. 1,000 MG in normal saline 100ml IV soln 90 ML IV ONE (10:30)
[2019-10-14] MEDS ORDERED: DESMOPRESSIN IV ONE (10:35)
[2019-10-14] MEDS ORDERED: NORMAL SALINE IV ONE (10:35)
[2019-10-14] MEDS: potassium Cl 20mEq/100mL bag 100 ML IV PRN ×2 (10:46→12:24)
[2019-10-14] MEDS: magnesium 2GM in 50ml NS 50 ML IV PRN (10:46)
[2019-10-14] MEDS: sodium chloride 0.45% 1,000 ML IV SCH (11:24)
--- NOTE | 2019-10-14 11:25 | NUR ---
0858 - Patient returned from OR on 2mcg of Dopamine and was tolerating well. Received Ancef in OR per Dr. Taylor, and was placed on 100 FiO2 with a PEEP of 5 as that was the settings from recent prior intubation. Due to patient not sating well once situated in room, despite sating at 95-97% for Dr. Taylor in OR, patient was sating in low 90s high 80s. Placed PEEP to 7, per Dr. Taylor and patient has been perfusing better since.
--- NOTE | 2019-10-14 12:24 | NUR ---
Patient Art Line in right wrist has been having a hard time keeping a wave form. I've been repositioning it for the better part of an hour, multiple flushes, redressed twice, and still blood pressure was reading 70/70. Manual cuff pressure matches automatic NIBP, so Endy was d/c'd as it was no longer working, and Cuff pressures being collected q15m.
[2019-10-14] MEDS: HYDROmorphone inj. 0.5 MG/0.5 ML DISP.SYRIN IV PRN ×4 (13:25→20:42)
[2019-10-14 14:45] LABS: ABG BASE EXCESS -0.7 mmol/L (-2.0-3.0); ABG OXYGEN SATURATION 91.7 % (95-98); ABG PCO2 (T) 40.3 mmHg (35.0-45.0); ABG PO2 (T) 64.1 mmHg (83-108); FCOHb 0.3 % (0.5-1.5); FO2Hb 91.4 % (94-100); PATIENT TEMPERATURE 37.3; RESPIRATORY RATE 14 b/min; TIDAL VOLUME 450 mL; TOTAL HEMOGLOBIN 12.3 G/dl (12.0-16.0)
[2019-10-14 15:13] LABS: BASOPHILS % (AUTO) 0.1 % (0-1); EOSINOPHILS % (AUTO) 0 % (0-6); HEMATOCRIT 33.7 % (35.0-45.0); HEMOGLOBIN 11.3 g/dl (12.0-16.0); LYMPHOCYTES # (AUTO) 1.8 X10'3 (1.1-4.8); MEAN CORPUSCULAR HEMOGLOBIN 29.7 PG (27.0-31.0); MEAN CORPUSCULAR HGB CONC 33.6 g/dL (33.0-36.5); MEAN CORPUSCULAR VOLUME 88.5 FL (78-98); MEAN PLATELET VOLUME 8.9 FL (7.4-10.4); MONOCYTES # (AUTO) 1.4 X10'3 (0-0.9); MONOCYTES % (AUTO) 8.2 % (2-12); NEUTROPHILS # (AUTO) 14.3 X10'3 (1.8-7.7); NEUTROPHILS % (AUTO) 81.7 % (42-75); PLATELET COUNT 112 X10'3 (140-440); RED CELL DISTRIBUTION WIDTH 14.3 % (11.5-14.5); WHITE BLOOD COUNT 17.5 X10'3 (4.5-11.0)
[2019-10-14 15:33] LABS: ALANINE AMINOTRANSFERASE 17 U/L (12-78); ALBUMIN 3.1 G/DL (3.4-5.0); ALBUMIN/GLOBULIN RATIO 1.9 (1.1-1.5); ALKALINE PHOSPHATASE 34 IU/L (46-116); ANION GAP 5 (8-16); ASPARTATE AMINO TRANSFERASE 30 U/L (10-37); BILIRUBIN,TOTAL 0.9 MG/DL (0.1-1.0); BLOOD UREA NITROGEN 29 MG/DL (7-18); BUN/CREATININE RATIO 26.9 (6.6-38.0); CALCIUM 7.8 MG/DL (8.5-10.1); CHLORIDE 112 MMOL/L (99-107); CREATININE 1.08 MG/DL (0.40-0.90); GLUCOSE 114 MG/DL (70-104); SODIUM 144 MMOL/L (135-145); TOTAL CARBON DIOXIDE 26.7 MMOL/L (24-32); TOTAL PROTEIN 4.7 G/DL (6.4-8.2); eGFR 51 ML/MIN
[2019-10-14 15:39] LABS: POTASSIUM 5.7 MMOL/L (3.5-5.1)
--- NOTE | 2019-10-14 15:47 | NUR ---
Spoke to Dr. Salazar regarding potential extubation, as patient is awake, however the FiO2 is still 60% with a PEEP at 7. Dr. Salazar stated to go up on the PEEP to 10, decrease FiO2 (as patient tolerates) to 40% and then gradually walk down PEEP back to 5. When patient has an FiO2 of 40% and a PEEP of 5, we will extubate per Dr. Salazar's orders.
[2019-10-14 16:12] LABS: PARTIAL THROMBOPLASTIN TIME 27 SECONDS (22-32)
--- NOTE | 2019-10-14 18:10 | NUR ---
Problems reprioritized. Patient report given, questions answered & plan of care reviewed with Yamilex ANDRES.
--- NOTE | 2019-10-14 18:30 | NUR ---
Patient in room ICU 2039. I have received report from Ana ANDRES and had the opportunity to ask questions and assume patient care.
[2019-10-14] MEDS ORDERED: furosemide 40mg/4ml inj IV ONE (18:35)
[2019-10-14 19:04] LABS: MAGNESIUM 2.6 MG/DL (1.5-2.4)
--- NOTE | 2019-10-14 19:10 | NUR ---
Weaning from ventilator in progress. Patient awakens quickly, restless and agitated,tachycardic. Medicated for pain per 4-[address] verbal scale[address] Dr. aSlazar updated on patient status, orders received. Okay to use Precedex drip for agitation during weaning. Okay to titrate PEEP down after titrating FiO2 while weaning to extubate. Okay to give 500mL albumin x1 for hypotension p/Lasix. New chest xray reviewed by Ingrid. Will continue to monitor
[2019-10-14] MEDS: dexmedetomidin/NS 400mcg/100ml 100 ML IV SCH (19:32)
[2019-10-14] MEDS: insulin glargine (Lantus) pen - multi-dose SQ SCH (21:00)
--- NOTE | 2019-10-14 22:56 | NUR ---
BP improved p/albumin. Titrating Dopamine to keep MAP greater than 60. Urine output improved p/Lasix. Patient awakens to voice easily, agitation decreased with Precedex.
[2019-10-15] VITALS (21 sets, daily range): BP systolic 92–137; BP diastolic 49–72
[2019-10-15 02:05] LABS: ALBUMIN 3.4 G/DL (3.4-5.0); ANION GAP 4 (8-16); BLOOD UREA NITROGEN 30 MG/DL (7-18); BUN/CREATININE RATIO 31.9 (6.6-38.0); CALCIUM 7.5 MG/DL (8.5-10.1); CHLORIDE 111 MMOL/L (99-107); CREATININE 0.94 MG/DL (0.40-0.90); GLUCOSE 107 MG/DL (70-104); MAGNESIUM 2.4 MG/DL (1.5-2.4); PHOSPHORUS 1.8 MG/DL (2.3-4.5); POTASSIUM 4.6 MMOL/L (3.5-5.1); SODIUM 143 MMOL/L (135-145); TOTAL CARBON DIOXIDE 27.8 MMOL/L (24-32); eGFR 59 ML/MIN
[2019-10-15 02:45] LABS: ABG BASE EXCESS -1.9 mmol/L (-2.0-3.0); ABG HCO3 20.3 mmol/L (22.0-26.0); ABG OXYGEN SATURATION 96.5 % (95-98); ABG PCO2 (T) 27.1 mmHg (35.0-45.0); ABG PO2 (T) 89.8 mmHg (83-108); ALLEN'S TEST POSITIVE; FCOHb 0.2 % (0.5-1.5); FMetHb 0.2 % (0.3-1.12); FO2Hb 96.1 % (94-100); PATIENT TEMPERATURE 37.4; PEEP 5 cm H2O; TOTAL HEMOGLOBIN 10.4 G/dl (12.0-16.0)
[2019-10-15 03:02] LABS: BASOPHILS % (AUTO) 0 % (0-1); EOSINOPHILS % (AUTO) 0.1 % (0-6); HEMATOCRIT 29.7 % (35.0-45.0); LYMPHOCYTES # (AUTO) 1.7 X10'3 (1.1-4.8); LYMPHOCYTES % (AUTO) 14.8 % (21-51); MEAN CORPUSCULAR HEMOGLOBIN 29.8 PG (27.0-31.0); MEAN CORPUSCULAR HGB CONC 33.7 g/dL (33.0-36.5); MEAN CORPUSCULAR VOLUME 88.4 FL (78-98); MONOCYTES # (AUTO) 1.2 X10'3 (0-0.9); NEUTROPHILS # (AUTO) 8.7 X10'3 (1.8-7.7); NEUTROPHILS % (AUTO) 75.1 % (42-75); PLATELET COUNT 85 X10'3 (140-440); RED BLOOD COUNT 3.35 X10'6 (4.20-5.60); RED CELL DISTRIBUTION WIDTH 14.2 % (11.5-14.5); WHITE BLOOD COUNT 11.5 X10'3 (4.5-11.0)
--- NOTE | 2019-10-15 03:04 | NUR ---
Extubated patient w/RT to 4LNC without incident. Tolerated well. Patient awake and alert, moves all extremities, follows commands appropriately. Precedex off.
--- NOTE | 2019-10-15 05:15 | NUR ---
Patient occasionally disoriented but reorients easily. Sitter at bedside for safety at this time.
--- NOTE | 2019-10-15 06:16 | NUR ---
Orientee documentation: I have reviewed and agree with all interventions, assessments performed and documented by Art ANDRES. Orientee Medication Administration: For this medication-pass time frame, all medication were reviewed, dispensed, administered and documented per hospital policy by Art ANDRES .
[2019-10-15] MEDS: sennosides/docusate sodium tablet PO SCH ×2 (07:57→21:02)
[2019-10-15] MEDS: atorvastatin 10mg tablet PO SCH (07:58)
[2019-10-15] MEDS: metoprolol tartrate 12.5mg (1/2 tablet) PO SCH ×2 (07:58→20:00)
[2019-10-15] MEDS: benzonatate 100mg capsule PO SCH ×3 (07:58→21:00)
[2019-10-15] MEDS: aspirin 325mg tablet, delayed-release (Ecotrin) PO SCH (07:58)
[2019-10-15] MEDS: pantoprazole 40mg Tablet.DR PO SCH (07:58)
[2019-10-15] MEDS: aspirin 81mg tab.chew PO SCH (08:30)
[2019-10-15] MEDS ORDERED: furosemide 40mg/4ml inj IV ONE (08:35)
[2019-10-15] MEDS: dexmedetomidin/NS 400mcg/100ml 100 ML IV SCH (15:00)
--- NOTE | 2019-10-15 18:00 | NUR ---
took report and assumed care of patient from Art RN
[2019-10-15] MEDS: insulin glargine (Lantus) pen - multi-dose SQ SCH (21:00)
[2019-10-15] MEDS: HYDROcodone/acetaminophen 10/325mg tab PO PRN (21:03)
[2019-10-16] VITALS (24 sets, daily range): BP systolic 94–149; BP diastolic 51–94
[2019-10-16] MEDS: dexmedetomidin/NS 400mcg/100ml 100 ML IV SCH ×2 (00:21→14:59)
[2019-10-16 02:45] LABS: BASOPHILS % (AUTO) 0.2 % (0-1); EOSINOPHILS # (AUTO) 0.1 X10'3 (0-0.9); EOSINOPHILS % (AUTO) 0.7 % (0-6); HEMATOCRIT 28.4 % (35.0-45.0); HEMOGLOBIN 9.7 g/dl (12.0-16.0); LYMPHOCYTES # (AUTO) 2.2 X10'3 (1.1-4.8); LYMPHOCYTES % (AUTO) 19.5 % (21-51); MEAN CORPUSCULAR HEMOGLOBIN 30.2 PG (27.0-31.0); MEAN CORPUSCULAR HGB CONC 34.1 g/dL (33.0-36.5); MEAN CORPUSCULAR VOLUME 88.5 FL (78-98); MONOCYTES # (AUTO) 1.1 X10'3 (0-0.9); MONOCYTES % (AUTO) 9.5 % (2-12); NEUTROPHILS # (AUTO) 7.9 X10'3 (1.8-7.7); NEUTROPHILS % (AUTO) 70.1 % (42-75); PLATELET COUNT 99 X10'3 (140-440); RED BLOOD COUNT 3.21 X10'6 (4.20-5.60); RED CELL DISTRIBUTION WIDTH 13.9 % (11.5-14.5); WHITE BLOOD COUNT 11.2 X10'3 (4.5-11.0)
[2019-10-16 03:00] LABS: ALBUMIN 2.9 G/DL (3.4-5.0); ANION GAP 5 (8-16); BLOOD UREA NITROGEN 26 MG/DL (7-18); BUN/CREATININE RATIO 27.7 (6.6-38.0); CALCIUM 7.6 MG/DL (8.5-10.1); CHLORIDE 108 MMOL/L (99-107); CREATININE 0.94 MG/DL (0.40-0.90); GLUCOSE 79 MG/DL (70-104); MAGNESIUM 2.2 MG/DL (1.5-2.4); PHOSPHORUS 1.8 MG/DL (2.3-4.5); SODIUM 138 MMOL/L (135-145); TOTAL CARBON DIOXIDE 25.4 MMOL/L (24-32); eGFR 59 ML/MIN
[2019-10-16 03:02] LABS: POTASSIUM 4.1 MMOL/L (3.5-5.1)
[2019-10-16] MEDS: potassium Cl 20mEq/100mL bag 100 ML IV PRN ×2 (03:43→12:07)
[2019-10-16] MEDS: HYDROcodone/acetaminophen 10/325mg tab PO PRN ×4 (03:59→17:55)
--- NOTE | 2019-10-16 05:25 | NUR ---
Assisted patient to chair with two person assist. Heart vest in place around chest. Patient tolerated well, no complaints of dizziness or nausea. Using flutter valve without prompting. Dopamine off all shift. Will continue to monitor.
[2019-10-16] MEDS: magnesium 4gm in 100ml NS 100 ML IV PRN (05:30)
--- NOTE | 2019-10-16 06:27 | NUR ---
gave report and handed off care to Elodia ANDRES
--- NOTE | 2019-10-16 06:27 | NUR ---
Orientee documentation: I have reviewed and agree with all interventions, assessments performed and documented by Art ANDRES . Orientee Medication Administration: For this medication-pass time frame, all medication were reviewed, dispensed, administered and documented per hospital policy by Art ANDRES.
[2019-10-16] MEDS: benzonatate 100mg capsule PO SCH ×3 (08:32→20:45)
[2019-10-16] MEDS: sennosides/docusate sodium tablet PO SCH ×2 (08:33→20:00)
[2019-10-16] MEDS: atorvastatin 10mg tablet PO SCH (08:33)
[2019-10-16] MEDS: metoprolol tartrate 12.5mg (1/2 tablet) PO SCH ×2 (08:35→20:45)
[2019-10-16] MEDS: pantoprazole 40mg Tablet.DR PO SCH (08:35)
[2019-10-16] MEDS: aspirin 81mg tab.chew PO SCH (08:35)
[2019-10-16] MEDS: sodium chloride 0.45% 1,000 ML IV SCH (11:32)
--- NOTE | 2019-10-16 14:15 | NUR ---
Initial: Pt is now getting Shoaib smoothies twice daily d/w RN as of this afternoon. On mechanical soft diet. she is s/p CABG. Appetite is lower s/p sx eating average of 25-49% hence the supplementation. No BM since admission and receiving bowel care BID. Appetite will likely improve after BM and with bowel regularity. Met pt at bedside, has no c/o meals, declined food preferences, does not want prune juice, d/w RN. Recommend: 1. continue no concentrated sweets diet 2. Shoaib smoothie BID 3. routine bowel care 4. wt per rx Addendum: 10/16/19 at [address] Amended: Links added.
--- NOTE | 2019-10-16 15:45 | NUR ---
Removed patient's scruggs catheter per Dr. Salazar, changed CT atrium due to almost full. Per report current CT is second atrium with total of 2010 ml. Atrium changed is now the THIRD atrium since surgery. Will continue to monitor.
--- NOTE | 2019-10-16 18:10 | NUR ---
Patient in room ICU 2039. I have received report from Elodia ANDRES and had the opportunity to ask questions and assume patient care.
--- NOTE | 2019-10-16 18:38 | NUR ---
Problems reprioritized. Patient report given, questions answered & plan of care reviewed with Rylee ANDRES.
[2019-10-16] MEDS: insulin glargine (Lantus) pen - multi-dose SQ SCH (21:00)
[2019-10-17] VITALS (22 sets, daily range): BP systolic 106–166; BP diastolic 57–93
[2019-10-17 01:58] LABS: BASOPHILS % (AUTO) 0.3 % (0-1); EOSINOPHILS # (AUTO) 0.1 X10'3 (0-0.9); EOSINOPHILS % (AUTO) 1.3 % (0-6); HEMATOCRIT 29.5 % (35.0-45.0); HEMOGLOBIN 10.2 g/dl (12.0-16.0); LYMPHOCYTES # (AUTO) 1.9 X10'3 (1.1-4.8); LYMPHOCYTES % (AUTO) 17.7 % (21-51); MEAN CORPUSCULAR HGB CONC 34.5 g/dL (33.0-36.5); MEAN CORPUSCULAR VOLUME 89.8 FL (78-98); MEAN PLATELET VOLUME 8.3 FL (7.4-10.4); MONOCYTES # (AUTO) 1.1 X10'3 (0-0.9); MONOCYTES % (AUTO) 9.7 % (2-12); NEUTROPHILS # (AUTO) 7.7 X10'3 (1.8-7.7); PLATELET COUNT 132 X10'3 (140-440); RED BLOOD COUNT 3.28 X10'6 (4.20-5.60); WHITE BLOOD COUNT 10.8 X10'3 (4.5-11.0)
[2019-10-17 02:10] LABS: ALBUMIN 2.8 G/DL (3.4-5.0); ANION GAP 8 (8-16); BLOOD UREA NITROGEN 20 MG/DL (7-18); BUN/CREATININE RATIO 24.7 (6.6-38.0); CALCIUM 7.7 MG/DL (8.5-10.1); CHLORIDE 108 MMOL/L (99-107); CREATININE 0.81 MG/DL (0.40-0.90); GLUCOSE 96 MG/DL (70-104); MAGNESIUM 2.3 MG/DL (1.5-2.4); PHOSPHORUS 2.4 MG/DL (2.3-4.5); POTASSIUM 4.4 MMOL/L (3.5-5.1); SODIUM 140 MMOL/L (135-145); TOTAL CARBON DIOXIDE 24.5 MMOL/L (24-32); eGFR 71 ML/MIN
[2019-10-17] MEDS: magnesium 2GM in 50ml NS 50 ML IV PRN (03:36)
--- NOTE | 2019-10-17 06:12 | NUR ---
Problems reprioritized. Patient report given, questions answered & plan of care reviewed with Yessica ANDRES.
--- NOTE | 2019-10-17 06:25 | NUR ---
Patient in room ICU 2039. I have received report from Dante ANDRES and had the opportunity to ask questions and assume patient care.
--- NOTE | 2019-10-17 06:51 | NUR ---
Pt has not had BM yet. She took MOM 2 days ago with no effect. Offered her Mag Citrate and she refused. She is willing to take another dose and states she believes that will work today.
[2019-10-17] MEDS: aspirin 81mg tab.chew PO SCH (07:24)
[2019-10-17] MEDS: sennosides/docusate sodium tablet PO SCH ×2 (07:24→20:43)
[2019-10-17] MEDS: atorvastatin 10mg tablet PO SCH (07:24)
[2019-10-17] MEDS: benzonatate 100mg capsule PO SCH ×3 (07:24→20:43)
[2019-10-17] MEDS: pantoprazole 40mg Tablet.DR PO SCH (07:24)
[2019-10-17] MEDS: metoprolol tartrate 12.5mg (1/2 tablet) PO SCH (07:24)
[2019-10-17] MEDS: JUVEN Smoothie Arginine/Glut./Ca2+Bmb (Juven 19.3pkt) 240ml cup PO SCH ×2 (08:23→12:30)
[2019-10-17] MEDS ORDERED: furosemide 40mg/4ml inj IV ONE (10:15)
--- NOTE | 2019-10-17 18:10 | NUR ---
Patient in room ICU 2039. I have received report from Yessica ANDRES and had the opportunity to ask questions and assume patient care.
--- NOTE | 2019-10-17 18:42 | NUR ---
Problems reprioritized. Patient report given, questions answered & plan of care reviewed with Dante ANDRES.
[2019-10-17] MEDS: carVEDilol 3.125mg tablet PO SCH (20:43)
[2019-10-17] MEDS: insulin glargine (Lantus) pen - multi-dose SQ SCH (21:00)
[2019-10-17] MEDS ORDERED: lisinopril 5mg tablet PO SCH (21:00)
[2019-10-18] VITALS (11 sets, daily range): BP systolic 114–150; BP diastolic 59–79
[2019-10-18 03:02] LABS: BASOPHILS % (AUTO) 0.2 % (0-1); EOSINOPHILS # (AUTO) 0.4 X10'3 (0-0.9); EOSINOPHILS % (AUTO) 3.9 % (0-6); LYMPHOCYTES # (AUTO) 1.6 X10'3 (1.1-4.8); LYMPHOCYTES % (AUTO) 16.3 % (21-51); MEAN CORPUSCULAR HEMOGLOBIN 30.9 PG (27.0-31.0); MEAN CORPUSCULAR HGB CONC 34.4 g/dL (33.0-36.5); MEAN CORPUSCULAR VOLUME 89.9 FL (78-98); MEAN PLATELET VOLUME 8.2 FL (7.4-10.4); NEUTROPHILS % (AUTO) 69.6 % (42-75); PLATELET COUNT 164 X10'3 (140-440); RED BLOOD COUNT 3.23 X10'6 (4.20-5.60); RED CELL DISTRIBUTION WIDTH 14.2 % (11.5-14.5)
[2019-10-18 03:20] LABS: ALBUMIN 2.6 G/DL (3.4-5.0); ANION GAP 8 (8-16); BLOOD UREA NITROGEN 16 MG/DL (7-18); BUN/CREATININE RATIO 21.3 (6.6-38.0); CALCIUM 7.8 MG/DL (8.5-10.1); CHLORIDE 108 MMOL/L (99-107); CREATININE 0.75 MG/DL (0.40-0.90); GLUCOSE 79 MG/DL (70-104); MAGNESIUM 1.9 MG/DL (1.5-2.4); PHOSPHORUS 3.4 MG/DL (2.3-4.5); POTASSIUM 4.1 MMOL/L (3.5-5.1); SODIUM 141 MMOL/L (135-145); TOTAL CARBON DIOXIDE 24.7 MMOL/L (24-32); eGFR 77 ML/MIN
[2019-10-18] MEDS: magnesium 4gm in 100ml NS 100 ML IV PRN (03:56)
--- NOTE | 2019-10-18 06:16 | NUR ---
Problems reprioritized. Patient report given, questions answered & plan of care reviewed with Brie ANDRES.
--- NOTE | 2019-10-18 07:13 | NUR ---
Patient in room ICU 2039. I have received report from Dante ANDRES and had the opportunity to ask questions and assume patient care.
[2019-10-18] MEDS: JUVEN Smoothie Arginine/Glut./Ca2+Bmb (Juven 19.3pkt) 240ml cup PO SCH (07:30)
[2019-10-18] MEDS ORDERED: HYDROchlorothiazide 12.5mg capsule PO SCH (08:00)
[2019-10-18] MEDS ORDERED: ASPI-1265 PO (08:45)
[2019-10-18] MEDS ORDERED: HYDR-4353 PO (08:45)
[2019-10-18] MEDS ORDERED: SENN-166 PO (08:45)
[2019-10-18] MEDS: atorvastatin 10mg tablet PO SCH (08:48)
[2019-10-18] MEDS: aspirin 81mg tab.chew PO SCH (08:48)
[2019-10-18] MEDS: benzonatate 100mg capsule PO SCH (08:48)
[2019-10-18] MEDS: sennosides/docusate sodium tablet PO SCH (08:48)
[2019-10-18] MEDS: carVEDilol 3.125mg tablet PO SCH (08:48)
[2019-10-18] MEDS: pantoprazole 40mg Tablet.DR PO SCH (08:59)
--- NOTE | 2019-10-18 12:15 | NUR ---
Patient was seen by Dr. Salazar, reviewed discharge instructions, medications, restrictions and follow up needed. Bathing and incisional care reviewed as well. Patient ambulated and did well. R I.J removed without complications. Pt. offers no complaints this AM and stated she is feeling good. Patient left in stable condition with her daughter.
== END 2019-10-18 12:23 | disposition home or self-care (01) | DRG 228 ==
LOC: PAS IN 05:10 → EDSTATUS 07:30 → ICU 2S 09:48
PROVIDERS: ADMIT Thoracic Surgery (Cardiothoracic Vascular Surgery); ATTEND Thoracic Surgery (Cardiothoracic Vascular Surgery)
PROC: 021209W Bypass Coronary Artery, Three Arteries from Aorta with Autologous Venous Tissue, Open Approach (ICD-10-PCS; 2019-10-12)
PROC: 06BP4ZZ Excision of Right Saphenous Vein, Percutaneous Endoscopic Approach (ICD-10-PCS; 2019-10-12)
PROC: 5A1221Z Performance of Cardiac Output, Continuous (ICD-10-PCS; 2019-10-12)
PROC: B24BZZ4 Ultrasonography of Heart with Aorta, Transesophageal (ICD-10-PCS; 2019-10-12)
PROC: 02HP32Z Insertion of Monitoring Device into Pulmonary Trunk, Percutaneous Approach (ICD-10-PCS; 2019-10-12)
PROC: 4A133B3 Monitoring of Arterial Pressure, Pulmonary, Percutaneous Approach (ICD-10-PCS; 2019-10-12)
PROC: 4A1239Z Monitoring of Cardiac Output, Percutaneous Approach (ICD-10-PCS; 2019-10-12)
PROC: 02100Z9 Bypass Coronary Artery, One Artery from Left Internal Mammary, Open Approach (ICD-10-PCS; principal; 2019-10-12 07:05)
PROC: 02W Heart and Great Vessels, Revision (ICD-10-PCS; 2019-10-14)
PROC: 30233R1 Transfusion of Nonautologous Platelets into Peripheral Vein, Percutaneous Approach (ICD-10-PCS; 2019-10-14)
PROC: 30233N1 Transfusion of Nonautologous Red Blood Cells into Peripheral Vein, Percutaneous Approach (ICD-10-PCS; 2019-10-14)
PROC: 0WCC0ZZ Extirpation of Matter from Mediastinum, Open Approach (ICD-10-PCS; 2019-10-14)
DX: I25.119 Atherosclerotic heart disease of native coronary artery with unspecified angina pectoris (principal); N17.0 Acute kidney failure with tubular necrosis; I50.32 Chronic diastolic (congestive) heart failure; D62 Acute posthemorrhagic anemia; R04.89 Hemorrhage from other sites in respiratory passages; E78.5 Hyperlipidemia, unspecified; I34.0 Nonrheumatic mitral (valve) insufficiency; F12.90 Cannabis use, unspecified, uncomplicated; F17.210 Nicotine dependence, cigarettes, uncomplicated; I70.0 Atherosclerosis of aorta; R03.1 Nonspecific low blood-pressure reading; R94.39 Abnormal result of other cardiovascular function study; I11.0 Hypertensive heart disease with heart failure; D69.6 Thrombocytopenia, unspecified; Z84.1 Family history of disorders of kidney and ureter; Z98.51 Tubal ligation status; I25.2 Old myocardial infarction; Z88.5 Allergy status to narcotic agent; Z71.6 Tobacco abuse counseling
CPT/HCPCS: 0232T; 93312; 93325; 36415; 36430; 36600; 71045; 71046; 80048; 80053; 81001; 82330; 82435; 82803; 82947; 82948; 83036; 83735; 84100; 84132; 84295; 85018; 85025; 85027; 85347; 85384; 85610; 85730; 86870; 86880; 86885; 86900; 86901; 86902; 86905; 86920; 86922; 87081; 93005; 93880; 93971; 94002; 94060; 94640; 94760; 97116; 97161; 97530; A4618; A6258; A6402; A6449; A7000; A7048; C1713; C1751; C9113; G0378; J0131; J0690; J1170; J1265; J1644; J1815; J1940; J2001; J2060; J2150; J2250; J2370; J2405; J2440; J2597; J2704; J2720; J2930; J3010; J3370; J3475; J3480; J3490; J7030; J7040; J7050; J7060; J7120; P9016; P9035; P9045; P9047